=== PATIENT | female | born 1970 | race Asian ===

== ENCOUNTER → 2018-08-14 | Outpatient (CLI) | payer BC ==
--- NOTE | 2018-08-14 16:46 | PCVCIMAG ---
APPROVED REPORT Study performed: 08/14/2018 15:44:13 Exam: Stress Echocardiogram Indication: Chest pain Patient Location: Echo lab Stress Nurse: Ligia Coleman RN Room #: 2 Status: routine Ht: 5 ft 2 in HR: 83 bpm BP: 124/76 mmHg Rhythm: NSR Medical History Medical History: No history of CAD Previous Cardiac Procedures: none Pretest Chest Pain Characteristics: No chest pain Exercise History: Physically active Family Hx A Fib Procedure The patient underwent an Exercise Stress Test using the Koffi Protocol. Blood pressure, heart rate, and EKG were monitored. An Echocardiogram was performed by commercial kitchen service technician in four stages in quad fashion. At peak stress, four selected images were obtained and placed side by side with resting images for comparison. Stress Test Details Stress Test: Exercise stress testing was performed using a Koffi protocol. HR Resting HR: 83 bpmMax Heart Rate (APMHR): 172 bpm Max HR Achieved: 171 bpmTarget HR (85% APMHR): 146 bpm % of APMHR: 99 Recovery HR: 112 bpm HR response to stress: Normal HR response to stress BP Resting BP: 124/76 mmHg Max BP: 158/80 mmHg Recovery BP: 110/64 mmHg BP response to stress: Normal blood pressure response to stress. ECG Resting ECG: Sinus Rhythm, voltage criteria for LVH Stress ECG: Sinus Rhythm ST Change: Horizontal ST depression Maximum ST Deviation: 1 mm Arrhythmia: None Recovery ECG: Sinus Rhythm, nonspecific ST-T abnormalities Recovery ST Change: Non-ischemic Recovery ST Deviation: 0.5 mm Recovery Arrhythmia: None Clinical Reason for Termination: Maximal effort Stress Symptoms: fatigue Exercise duration: 11 min 00 sec Highest Stage Achieved: Stage 4: 4.2 mph at 16% grade. Exercise capacity: 13.4 METs Overall Exercise Capacity for Age: Good Scale: Active Angina Score: None No complications. Stress ECG Conclusion The patient exercised according to the KOFFI protocol for 11:00 mins; achieving a work level of 13.4 METS. The resting heart rate of 83 bpm frank to a maximum heart rate of 171 bpm. This value represents 99% of the maximal, age-predicted heart rate. The resting blood pressure of 124/76 mmHg, frank to a maximum blood pressure of 158/80 mmHg. The exercise test was stopped due to fatigue. [place] Treadmill Score is 6.0 which is Low risk. Pre-Stress Echo The resting Echocardiogram showed normal left ventricular contractility with an estimated Ejection Fraction of about 55-60%. Normal wall motion in all segments on baseline images. Post-Stress Echo The stress Echocardiogram showed normal left ventricular contractility with an estimated Ejection Fraction of about 65-70%. Normal augmentation of wall motion in all segments on post stress images. Clinical No clinical or ECG evidence for ischemia. Conclusion Clinical Response: Non-ischemic Exercise Capacity: Superior Stress ECG Response: Ischemic Stress Echo Images: Non-ischemic No clinical or echocardiographic evidence for ischemia. No echocardiographic evidence for exercise induced ischemia. Abnormal electrocardiographic response to exercise, probably false positive. Normal stress echocardiogram with maximal exercise stress. <Conclusion> No clinical or echocardiographic evidence for ischemia. No echocardiographic evidence for exercise induced ischemia. Abnormal electrocardiographic response to exercise, probably false positive. Normal stress echocardiogram with maximal exercise stress.
== END | disposition home or self-care (01) ==
LOC: PCVCIMAG 15:01
PROVIDERS: ATTEND Nurse Practitioner
DX: R07.9 Chest pain, unspecified (principal)
CPT/HCPCS: 93325; 93351